=== PATIENT | female | born 1965 | race Caucasian/White ===

== ENCOUNTER 2023-07-21 09:30 | Emergency (ER) | payer BC, SELFPAY ==
[2023-07-21 09:40] VITALS: BP 152/83
[2023-07-21 09:51] VITALS: BP 141/75
[2023-07-21 10:00] VITALS: BP 134/85; BMI 25.2
[2023-07-21] MEDS: DELTASONE 50 MG PO (10:53)
[2023-07-21] MEDS: PEPCID 20 MG PO (10:53)
--- NOTE | 2023-07-21 10:58 | ED.GENMED ---
History of Present Illness
General
Chief Complaint: Allergic Reaction
Source: patient
Time Seen by Provider: 07/21/23 09:49
Travel History
Have you had any contact with someone who has COVID-19?: No
Do you have any symptoms of coronavirus? Fever > 100 degrees, chills, cough, shortness of breath, sore throat, loss of taste or smell, muscle aches, or headache?: No
History of Present Illness
History of Present Illness:
58-year-old female with past medical history of hypothyroidism presenting the emergency department for evaluation of bilateral upper and lower lip swelling that is ongoing since this past Thursday, today thought symptoms were little bit worse and
felt as if her throat was now scratchy/raspy prompting her to come to the ER for further evaluation. Patient did take 50 mg of Benadryl around 8:45 AM prior to arrival with minimal relief. She states she cannot think of anything that would have
potentially caused this reaction as she denies any new foods, detergents, make-up or any other exposures. She does note a history of 1 time after eating shrimp having a reaction but states has had shrimp and seafood since that time without
complications. No other known allergies.
Past History
Past History
ED Past Medical History: Hypothyroidism
ED Past Surgical History: Appendectomy and Tonsilectomy
Social History
Tobacco: Non-smoker
Alcohol: None
Drug: None
Personal:
Living: with family
Review of Systems
Review of Systems
All Other Systems: ROS reviewed and negative except as documented in HPI and ROS
Phy Exam
Physical Exam
Physical Exam:
GENERAL: Alert , in no apparent distress
EYE: conjunctiva clear
Head: Normocephalic atraumatic
NECK: Supple,
ENT: mmm. Very slight edema to the right lower lip compared to the left lower lip but no evidence for anaphylaxis, no stridor, no goiter, tolerating secretions without difficulty
LUNGS: no acute respiratory distress, clear to auscultation, no accessory muscle use
NEUROLOGICAL: Alert and oriented
SKIN: Warm and dry, skin intact.
MUSCULOSKELETAL: well perfused.
PSYCH: Normal and appropriate interaction.
Scores
Heart Failure Risk
Heart Failure Risk Score: Not Applicable
Heart Score for Chest Pain Patients
STEMI patient?: Not applicable
Withdrawal Assessment of Alcohol
Withdrawal Assessment Completed?: Not applicable
Course
Orders/Labs/Results
Orders:
Orders
07/21/23 10:30
Famotidine [Pepcid] 20 mg PO NOW STA
Prednisone [Deltasone] 50 mg PO NOW STA
07/21/23 09:47
07/21/23 09:47
Vital Signs
Initial and Last Documented VS:
Initial Vital Signs
Temp Pulse Resp BP Pulse Ox
99.2 F 88 18 152/83 99
07/21/23 09:40 07/21/23 09:40 07/21/23 09:40 07/21/23 09:40 07/21/23 09:40
Last Documented Vital Signs
Temp Pulse Resp BP Pulse Ox
99.2 F 68 15 134/85 100
07/21/23 09:40 07/21/23 10:15 07/21/23 09:52 07/21/23 10:00 07/21/23 10:00
MDM/Problems Addressed
Differential Diagnosis Includes:
Allergic reaction, no signs to be suggestive of infection, no signs of current anaphylaxis
MDM/Problems Addressed:
58-year-old female presented emergency department for evaluation of reported bilateral upper and lower lip swelling. She did take some Benadryl prior to arrival but without much relief. Overall I am encouraged by the patient's presentation that
there is not any evidence for anaphylaxis and I expressed this to her. Will treat with Benadryl and Pepcid continue to observe. Anticipate sending patient home with similar. I will also be sending patient home with a EpiPen just in case. Will
provide her with information for outpatient ict business analyst for further testing and evaluation.
*Pulse Oximetry
Patient hypoxic: no
*Critical Care Note
Total Time (30-74mins, 75-104mins- exclusive of procedures): Not Applicable
Data Reviewed
Further Testing Considered But Not Given:
Patient lab work and IV were considered however given this to be unlikely to change patient's treatment plan decision was made to not obtain lab work
Patient Management
Escalation/DeEscalation of care consider admission/obs:
On reevaluation there is no further evidence for worsening swelling/angioedema. Advised patient to continue the Benadryl every 4-6 hours as needed, prednisone taper and Pepcid. Provided patient with information for outpatient ict business analyst. Aware of
return precautions but otherwise stable for discharge home.
ED Attending Note
-
Portions of this chart may have been created with voice recognition software.� Occasional wrong word or��sound alike� substitutions may have occurred due to the inherent limitations of voice recognition software.
Discharge Plan
Departure
Patient Disposition: Home (Routine Discharge)
Date of Disposition: 07/21/23
Time of Disposition: 12:35
Patient with high blood pressure during this ER visit?: Yes
Discharge Problem:
Lip swelling
Instructions: Allergic Reaction ED
Prescriptions:
New
prednisone 10 mg Tablet
See Rx Instructions .ROUTE .COMPLEX Qty: 30 0RF
Rx Instructions:
Take By Mouth:
40 mg daily x3 days, 30 mg daily x3 days,
20 mg daily x3 days, 10 mg daily x3 days.
famotidine [Pepcid] 20 mg tablet
20 mg PO DAILY Qty: 20 0RF
Referrals:
Lesly Bob MD [Active] - (Consular Officer - Please call for appointment)
Camila Meza MD [Family Provider] -
Interventions
Interventions:
*Risk Screen - Suicide Last Done: 07/21/23 09:41
*General Assessment Last Done: 07/21/23 09:41
*Neglect/Abuse Screening Last Done: 07/21/23 09:41
ED- Fall Risk Assessment Last Done: 07/21/23 10:00
*ED COVID-19 Vaccine History Last Done: 07/21/23 10:00
ED- Cardiac Assessment Last Done: 07/21/23 10:00
ED- Pulmonary Assessment Last Done: 07/21/23 10:00
ED-Skin Assessment Last Done: 07/21/23 10:00
[2023-07-21 11:58] VITALS: BP 122/76
[2023-07-21 12:00] VITALS: BP 133/87
== END 2023-07-21 12:56 | disposition home or self-care (01) ==
LOC: EMR 09:30
PROVIDERS: EMERGENCY PHYSICIAN Student in an Organized Health Care Education/Training Program; FAMILY PHYSICIAN Internal Medicine
DX: R22.0 Localized swelling, mass and lump, head (principal); R03.0 Elevated blood-pressure reading, without diagnosis of hypertension
CPT/HCPCS: 99283

== ENCOUNTER → 2023-08-28 06:26 | Day surgery (SDC) | payer BC, SELFPAY | LOC: GI 06:26 | PROVIDERS: ATTENDING PHYSICIAN Internal Medicine Gastroenterology | DX: Z86.010 Personal history of colon polyps (principal); Z12.11 Encounter for screening for malignant neoplasm of colon; Z83.719 Family history of colon polyps, unspecified; K64.8 Other hemorrhoids | CPT/HCPCS: 45380; 88305 ==